=== PATIENT | male | born 1945 | race Caucasian/White ===

== ENCOUNTER 2024-11-19 11:27 | Day surgery (SDC) | payer MEDICARE, OTHER ==
[2024-11-19] MEDS: IV FLUID CONTINUATION 1,000 ML IV ONE (13:04)
[2024-11-19 13:15] VITALS: TEMP 98
[2024-11-19] MEDS: LACTATED RINGERS 1,000 ML IV SCH (13:37)
[2024-11-19] MEDS ORDERED: PROPOFOL 10 MG/ML 20 ML VIAL IV ONE (13:45)
--- NOTE | 2024-11-19 13:50 | P.GSHP ---
History of Present Illness H&P Date: 11/19/24 Chief Complaint: GI bleed This is a 79-year-old male presents today for EGD and colonoscopy. Patient has issues with GI bleed. Past Medical History Past Medical History: Atrial Fibrillation, Blood Disorder, Deep Vein Thrombosis (DVT), Hearing Disorder / Deafness Additional Past Medical History / Comment(s): "Numerous blood clots"; anemia, loose, dark stools; has hearing aids, doesn't always wear. pt poor historian, denies memory impairment. History of Any Multi-Drug Resistant Organisms: None Reported Past Surgical History: Appendectomy, Cardiac Ablation, Heart Catheterization Past Anesthesia/Blood Transfusion Reactions: No Reported Reaction Smoking Status: Never smoker Medications and Allergies Home Medications Medication Instructions Recorded Confirmed Type Aspirin [Davie Aspirin EC] 81 mg PO Q48H 11/16/24 11/19/24 History Digoxin [Lanoxin] 125 mcg PO Q48H 11/16/24 11/19/24 History Ferrous Sulfate 1 dose PO DAILY 11/16/24 11/19/24 History ramipriL 1.25 mg PO DAILY 11/16/24 11/19/24 History Allergies Allergy/AdvReac Type Severity Reaction Status Date / Time banana Allergy Anaphylaxis Verified 11/19/24 13:38 Surgical - Exam Vital Signs Temp Pulse Resp BP Pulse Ox 98 F 72 16 112/81 100 11/19/24 13:14 11/19/24 13:14 11/19/24 13:14 11/19/24 13:14 11/19/24 13:14 - General well developed, well nourished, no distress - Eyes PERRL - ENT normal pinna - Neck no masses - Respiratory normal expansion - Cardiovascular Rhythm: regular - Abdomen Abdomen: soft, non tender Assessment and Plan Assessment: GI bleed. Will perform colono colonoscopy and EGD. Opy.
--- NOTE | 2024-11-19 14:19 | P.OP ---
Date of Procedure: 11/19/24 Preoperative Diagnosis: GI bleed Postoperative Diagnosis: Antral gastritis Sigmoid colon polyp Diverticulosis Procedure(s) Performed: EGD Colonoscopy Anesthesia: MAC Surgeon: Grant Bryson Pathology: other (Antrum, sigmoid colon polyp) Condition: stable Disposition: PACU Description of Procedure: Patient is placed on the endoscopy table in the lateral position. He received IV sedation. The Gastroflux oropharynx passed in the esophagus into the stomach. Scope was placed through the pylorus. The 1st and 2nd portion of the duodenum appeared normal. Scope Cinobac the antrum this appeared mildly Flaim. A biopsy was performed. The scope was then retroflexed and the Mainer of the stomach appeared normal. The GE junction was at 40 cm. The distal esophagus appeared normal. The proximal esophagus appeared normal. There was a small hiatal hernia. Next digital rectal exam was performed. This revealed no abnormalities. The flexible colonoscope was then placed patient anus and passed throughout the colon. The ileocecal valve could not be visualized due to tortuosity of the colon. The visualized right colon appeared normal. The transverse colon appeared normal in the descending colon there was diverticular changes. The sigmoid colon was examined. There was a large pedunculated polyp. This removed with the snare. The scope was Ruback the rectum this appeared normal. Scope withdrawn the patient. There is no sign of any active GI bleed. Presumed patient may have had bleeding from his colon polyp.
[2024-11-19 14:22] VITALS: PULSE 67
[2024-11-19 14:34] VITALS: BP 102/69; RESP 14
== END 2024-11-19 15:03 | disposition home or self-care (01) ==
LOC: ORWHC2ENDO 11:27
PROVIDERS: ATTEND Surgery
DX: K57.30 Diverticulosis of large intestine without perforation or abscess without bleeding (principal); D12.5 Benign neoplasm of sigmoid colon; K29.50 Unspecified chronic gastritis without bleeding; K44.9 Diaphragmatic hernia without obstruction or gangrene; I48.91 Unspecified atrial fibrillation; I50.9 Heart failure, unspecified; H91.90 Unspecified hearing loss, unspecified ear; Z79.82 Long term (current) use of aspirin; Z79.899 Other long term (current) drug therapy; Z86.718 Personal history of other venous thrombosis and embolism; Z87.892 Personal history of anaphylaxis; Z91.018 Allergy to other foods
CPT/HCPCS: 88305; 45385; 43239; J2704